=== PATIENT | female | born 1965 | race Caucasian/White ===

== ENCOUNTER 2020-01-25 16:59 | Emergency (ER) | payer BC, MEDICAID ==
[~2020-01-25] VITALS: Ht 160 cm; Wt 48.2 kg
[~2020-01-25 16:59] MED LIST: ELBA1TAB; LAMO100T65 PO; LIOT50TA6
[2020-01-25 18:44] VITALS: BP 178/114
== END 2020-01-25 18:46 | disposition home or self-care (01) ==
LOC: ER 17:00
DX: I10 Essential (primary) hypertension (principal); R06.02 Shortness of breath; R05 Cough; J02.9 Acute pharyngitis, unspecified; Z88.0 Allergy status to penicillin; Z88.2 Allergy status to sulfonamides; Z79.899 Other long term (current) drug therapy
CPT/HCPCS: 71045; 93005; 99283

== ENCOUNTER 2022-03-23 18:40 | Emergency (ER) | payer BC ==
[~2022-03-23] VITALS: Ht 160 cm; Wt 50.0 kg
[2022-03-23 18:48] VITALS: BP 185/90
[2022-03-23] MEDS ORDERED: normal saline 1000ML IV soln IV ONE (22:00)
[2022-03-23] MEDS ORDERED: magnesium 2GM in 50ml NS 50 ML IV ONE (22:00)
[2022-03-23] MEDS ORDERED: diphenhydrAMINE 50 mg/ml inj IV ONE (22:00)
[2022-03-23] MEDS ORDERED: nortriptyline 25mg capsule PO STA (22:04)
[2022-03-23] MEDS ORDERED: carbidopa/levodopa 10/100mg tab PO STA (22:04)
[2022-03-23 22:39] LABS: BASOPHILS % (AUTO) 0.7 % (0-1); EOSINOPHILS # (AUTO) 0.2 X10'3 (0-0.9); EOSINOPHILS % (AUTO) 2.9 % (0-6); HEMATOCRIT 40.5 % (35.0-45.0); HEMOGLOBIN 13.3 g/dl (12.0-16.0); LYMPHOCYTES # (AUTO) 2.4 X10'3 (1.1-4.8); LYMPHOCYTES % (AUTO) 44.9 % (21-51); MEAN CORPUSCULAR HEMOGLOBIN 27.7 PG (27.0-31.0); MEAN CORPUSCULAR VOLUME 84.2 FL (78-98); MEAN PLATELET VOLUME 7.5 FL (7.4-10.4); MONOCYTES # (AUTO) 0.6 X10'3 (0-0.9); MONOCYTES % (AUTO) 11.5 % (2-12); NEUTROPHILS # (AUTO) 2.2 X10'3 (1.8-7.7); PLATELET COUNT 278 X10'3 (140-440); RED BLOOD COUNT 4.81 X10'6 (4.20-5.60); RED CELL DISTRIBUTION WIDTH 14.3 % (11.5-14.5); WHITE BLOOD COUNT 5.4 X10'3 (4.5-11.0)
[2022-03-23 22:53] LABS: ALANINE AMINOTRANSFERASE 19 U/L (12-78); ALBUMIN 4.1 G/DL (3.4-5.0); ALKALINE PHOSPHATASE 103 IU/L (46-116); ANION GAP 7 (8-16); ASPARTATE AMINO TRANSFERASE 30 U/L (10-37); BILIRUBIN,TOTAL 0.6 MG/DL (0.1-1.0); BLOOD UREA NITROGEN 22 MG/DL (7-18); BUN/CREATININE RATIO 26.2 (6.6-38.0); CALCIUM 9.8 MG/DL (8.5-10.1); CHLORIDE 104 MMOL/L (99-107); CREATINE KINASE 169 U/L (26-192); CREATININE 0.84 MG/DL (0.40-0.90); GLUCOSE 116 MG/DL (70-104); MAGNESIUM 1.9 MG/DL (1.5-2.4); POTASSIUM 3.8 MMOL/L (3.5-5.1); SODIUM 139 MMOL/L (135-145); TOTAL CARBON DIOXIDE 27.6 MMOL/L (24-32); TOTAL PROTEIN 8.2 G/DL (6.4-8.2); eGFR 70 ML/MIN
[2022-03-23 22:59] LABS: ETHANOL < 0.010 GM/DL (0.0-0.010)
--- NOTE | 2022-03-23 23:36 | NUR ---
po meds x2 given
[2022-03-23] MEDS ORDERED: HYDR-3686 PO (23:54)
[2022-03-23] MEDS ORDERED: ondansetron/PF 4mg/2ml inj IV ONE (23:55)
--- NOTE | 2022-03-24 00:11 | NUR ---
zofran given by rn
--- NOTE | 2022-03-24 00:20 | NUR ---
iv dc'd pt being discharged dressing applied
[2022-03-24 01:24] LABS: CLARITY,URINE CLEAR (Clear); COLOR,URINE STRAW (Yellow); GLUCOSE, URINE NEGATIVE (Neg); KETONES,URINE NEGATIVE (Neg); LEUKOCYTE ESTERASE ,URINE TRACE (Neg); NITRITES, URINE POSITIVE (Neg); OCCULT BLOOD,URINE NEGATIVE (Neg); PROTEIN,URINE NEGATIVE (Neg); UROBILINOGEN,URINE 0.2 E.U/dL (0.2-1.0)
[2022-03-24 01:29] LABS: UA COLLECTION TYPE NON-SPECIFIED
[2022-03-24 01:36] LABS: SQUAMOUS EPITHELIAL CELL,UR FEW /LPF (FEW); URINE AMPHETAMINE SCREEN POSITIVE (Neg); URINE BARBITUATE SCREEN NEGATIVE (Neg); URINE BENZODIAZEPINES SCREEN NEGATIVE (Neg); URINE CANNABINOID SCREEN NEGATIVE (Neg); URINE COCAINE SCREEN NEGATIVE (Neg); URINE METHADONE SCREEN NEGATIVE (Neg); URINE OPIATE SCREEN POSITIVE (Neg); URINE PHENCYCLIDINE SCREEN NEGATIVE (Neg); WBC,URINE 20-30 /HPF (0-4)
[2022-03-24 01:37] LABS: BACTERIA,URINE 1+ /HPF (Neg); RBC,URINE 0-2 /HPF (0-2)
== END 2022-03-24 00:22 | disposition home or self-care (01) ==
LOC: ER 18:40
DX: G24.01 Drug induced subacute dyskinesia (principal)
CPT/HCPCS: 36415; 80053; 80305; 80320; 81001; 82550; 83735; 85025; 87088; 87186; 96365; 96375; 99284; J1200; J2405; J3475; J7030; 87077